=== PATIENT | female | born 1955 | race Caucasian/White ===

== ENCOUNTER 2016-12-31 13:59 | Emergency (ER) | payer BC ==
--- NOTE | 2016-12-31 16:14 | ED ---
Lower Extremity - HPI Summary HPI Summary: 61 y/o female with h/o right foot pain, following with a psychiatric social worker, states has had pain radiating up from foot up [place], also has knee pain inside of knee, worse with standing/ walking for long periods. Denies swelling, injuries, trauma. better with NSAIDs, worse after working/ standing long periods. Tried a knee brace, some improvement with pain. - History of Current Complaint Chief Complaint: EDExtremityLower Stated Complaint: RT KNEE/LEG PAIN Time Seen by Provider: 12/31/16 16:13 Hx Obtained From: Patient Onset of Pain: Days Onset/Duration: Weeks Severity Initially: Moderate Severity Currently: Moderate Pain Intensity: 8 Pain Scale Used: 0-10 Numeric - Allergies/Home Medications Allergies/Adverse Reactions: Allergies Allergy/AdvReac Type Severity Reaction Status Date / Time No Known Allergies Allergy Verified 05/27/13 15:49 PMH/Surg Hx/FS Hx/Imm Hx Previously Healthy: No - htn, hypercholestrol Endocrine/Hematology History: Denies: Hx Diabetes Cardiovascular History: Reports: Hx Hypercholesterolemia, Hx Hypertension Denies: Hx Pacemaker/ICD GI History: Reports: Hx Gastroesophageal Reflux Disease History: Denies: Hx Renal Disease Sensory History: Reports: Hx Contacts or Glasses - reading only Denies: Hx Hearing Aid Opthamlomology History: Reports: Hx Contacts or Glasses - reading only Psychiatric History: Denies: Hx Panic Disorder - Surgical History Surgery Procedure, Year, and Place: CHOLECYSTECTOMY. APPENDECTOMY Infectious Disease History: No Infectious Disease History: Denies: Traveled Outside the [place] in Last 30 Days - Social History Alcohol Use: Occasionally Substance Use Type: Reports: None Smoking Status (MU): Never Smoked Tobacco Review of Systems Positive: Arthralgia, Myalgia, Decreased ROM All Other Systems Reviewed And Are Negative: Yes Physical Exam Triage Information Reviewed: Yes Vital Signs On Initial Exam: Initial Vitals Temp Pulse Resp BP Pulse Ox 97.9 F 75 14 137/64 98 12/31/16 14:01 12/31/16 14:01 12/31/16 14:01 12/31/16 14:01 12/31/16 14:01 Vital Signs Reviewed: Yes Appearance: Positive: Well-Appearing, Well-Nourished, Pain Distress Skin: Positive: Warm, Skin Color Reflects Adequate Perfusion Head/Face: Positive: Normal Head/Face Inspection Musculoskeletal: Positive: Other - RIGHT - tenderness to palpation over pes anserine, no pain over tibial plat, tib, fib. neg apley, anterior, posterior drawer, PT, DP 2+, no edema, no instability with LCL, MCL stressing, no effusion Neurological: Positive: Normal, Sensory/Motor Intact, CN Intact II-III, Reflexes Intact - patellar Diagnostics - Vital Signs Vital Signs Temp Pulse Resp BP Pulse Ox 12/31/16 14:01 97.9 F 75 14 137/64 98 - Laboratory Lab Statement: Any lab studies that have been ordered have been reviewed, and results considered in the medical decision making process. Lower Extremity Course/Dx - Course Course Of Treatment: radiograph - negative for fx, stretching exercises shown, follow up with ortho if no improvement within 2-3 days, naproxen for pain - Diagnoses Differential Diagnosis/HQI/PQRI: Positive: Cellulitis, Compartment Syndrome, Infection, Sprain, Strain Provider Diagnoses: Pes anserinus tendonitis of right lower extremity Discharge - Discharge Plan Condition: Good Disposition: HOME Prescriptions: Naproxen [Naprosyn 500 mg] 500 mg PO BID PRN #60 tab PRN Reason: Pain Patient Education Materials: Knee Bursitis (ED), Tendinitis (ED) Forms: *Work Release Referrals: Barrera Adair DO [Primary Care Provider] - Additional Instructions: - DO not take aspirin and naproxn together - Stretching exercises as shown - Follow up with orthopedics within 1-2 weeks if no improvement - Follow up with primary physician for possible PT - continue brace for comfort
--- NOTE | 2016-12-31 17:02 | RAD ---
HISTORY: Medial knee pain COMPARISONS: None VIEWS: 4, Frontal, lateral, axial, and oblique views of the right knee FINDINGS: BONE DENSITY: Normal. BONES: There is no displaced fracture. JOINTS: There is no arthropathy. There is no suprapatellar joint effusion or lipohemarthrosis. ALIGNMENT: There is no dislocation. SOFT TISSUES: Unremarkable. OTHER FINDINGS: None. IMPRESSION: NO ACUTE OSSEOUS INJURY. IF SYMPTOMS PERSIST, RECOMMEND REPEAT IMAGING.
[2016-12-31 17:04] VITALS: BP 145/71
== END 2016-12-31 17:04 | disposition home or self-care (01) ==
LOC: ED 13:59
DX: M76.891 Other specified enthesopathies of right lower limb, excluding foot (principal); E78.00 Pure hypercholesterolemia, unspecified; I10 Essential (primary) hypertension; K21.9 Gastro-esophageal reflux disease without esophagitis
CPT/HCPCS: 99282

== ENCOUNTER 2017-07-04 16:08 | Emergency (ER) | payer BC ==
--- NOTE | 2017-07-04 18:05 | ED ---
Throat Pain/Nasal Congestion - HPI Summary HPI Summary: 61-year-old female presents with potential foreign body in the throat. She states 8 weeks ago she had a hair in her tooth thinks that she do not get it all. She states since then she felt a foreign body sensation in her throat. She states it feels like an irritation. She denies any drooling. She denies any chest pain or shortness of breath. She states has not changed from the past 8 weeks and is constant. She has not followed up with anybody yet. She denies any dental pain. She denies any previous thyroid issues. She denies any fevers. She denies any difficulty swallowing. She states food seems seems to almost get stuck and she almost chokes. She denies any change in her voice. - History of Current Complaint Chief Complaint: EDThroatPain Time Seen by Provider: 07/04/17 17:38 - Allergies/Home Medications Allergies/Adverse Reactions: Allergies Allergy/AdvReac Type Severity Reaction Status Date / Time No Known Allergies Allergy Verified 05/27/13 15:49 PMH/Surg Hx/FS Hx/Imm Hx Endocrine/Hematology History: Denies: Hx Diabetes Cardiovascular History: Reports: Hx Hypercholesterolemia, Hx Hypertension Denies: Hx Pacemaker/ICD GI History: Reports: Hx Gastroesophageal Reflux Disease History: Denies: Hx Renal Disease Sensory History: Reports: Hx Contacts or Glasses - reading only Denies: Hx Hearing Aid Opthamlomology History: Reports: Hx Contacts or Glasses - reading only Psychiatric History: Denies: Hx Panic Disorder - Surgical History Surgery Procedure, Year, and Place: CHOLECYSTECTOMY. APPENDECTOMY Infectious Disease History: No Infectious Disease History: Denies: Traveled Outside the [place] in Last 30 Days - Social History Alcohol Use: Occasionally Substance Use Type: Reports: None Smoking Status (MU): Never Smoked Tobacco Review of Systems Negative: Fever Positive: Other - foreign body in throat Negative: Chest Pain Negative: Shortness Of Breath All Other Systems Reviewed And Are Negative: Yes Physical Exam Triage Information Reviewed: Yes Vital Signs On Initial Exam: Initial Vitals Temp Pulse Resp BP Pulse Ox 96.5 F 73 14 183/74 100 07/04/17 16:10 07/04/17 16:10 07/04/17 16:10 07/04/17 16:10 07/04/17 16:10 Vital Signs Reviewed: Yes Appearance: Positive: Well-Appearing Skin: Positive: Warm, Dry Head/Face: Positive: Normal Head/Face Inspection Eyes: Positive: Normal, EOMI, CHRYSTAL, Conjunctiva Clear ENT: Positive: Normal ENT inspection, Pharynx normal, TMs normal Respiratory/Lung Sounds: Positive: Clear to Auscultation, Breath Sounds Present Cardiovascular: Positive: Normal, RRR Abdomen Description: Positive: Nontender, Soft Bowel Sounds: Positive: Present Musculoskeletal: Positive: Normal Neurological: Positive: Normal Psychiatric: Positive: Normal Diagnostics - Vital Signs Vital Signs Temp Pulse Resp BP Pulse Ox 07/04/17 16:10 96.5 F 73 14 183/74 100 - Laboratory Lab Statement: Any lab studies that have been ordered have been reviewed, and results considered in the medical decision making process. - Radiology neck Xray Interpretation: No Acute Changes - IMPRESSION: 1. NO RADIOPAQUE FOREIGN BODY. 2. 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 She states 8 weeks ago she had a hair in her tooth thinks that she do not get it all. She states since then she felt a foreign body sensation in her throat. She states it feels like an irritation. She denies any drooling. She denies any chest pain or shortness of breath. She states has not changed from the past 8 weeks and is constant. She has not followed up with anybody yet. She denies any dental pain. She denies any previous thyroid issues. She denies any fevers. She denies any difficulty swallowing. She states food seems seems to almost get stuck and she almost chokes. On exam airway patent. No drooling. Lungs clear to auscultation. Pharynx normal. X-ray shows no radiopaque foreign body. Will have follow-up with ENT for potential scope. blood pressure elevated at this visit will have follow up with primary as asx for continued care. Patient understands and agrees with plan. - Differential Diagnoses Differential Diagnoses: Foreign Body, Laryngitis - Diagnoses Provider Diagnoses: Foreign body sensation in throat, Elevated blood pressure reading Discharge - Sign-Out/Discharge Documenting (check all that apply): Discharge - Discharge Plan Condition: Good Disposition: HOME Referrals: Mana,Barrera J, DO [Primary Care Provider] - Alejandro Salazar MD [Medical Doctor] - Additional Instructions: Follow up with ENT Eat soft foods follow up with primary as blood pressure is elevated at this visit Return to ED if develop any new or worsening symptoms - Billing Disposition and Condition Condition: GOOD Disposition: HOME
--- NOTE | 2017-07-04 19:03 | RAD ---
HISTORY: Foreign body sensation, for 2 months COMPARISONS: None relevant VIEWS: 2, frontal and lateral views of the soft tissues of the neck FINDINGS: There is continuous air column from the pharynx the trachea. There is no intrahepatic foreign body. The prevertebral soft tissues are within normal limits for thickness. There is degenerative disc disease with multilevel anterolateral marginal osteophyte formation. IMPRESSION: 1. NO RADIOPAQUE FOREIGN BODY. 2. 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
[2017-07-04 19:34] VITALS: BP 176/87
== END 2017-07-04 19:34 | disposition home or self-care (01) ==
LOC: ED 16:08
DX: R09.89 Other specified symptoms and signs involving the circulatory and respiratory systems (principal); R03.0 Elevated blood-pressure reading, without diagnosis of hypertension
CPT/HCPCS: 70360; 99281